=== PATIENT | female | born 1975 | race Caucasian/White ===

== ENCOUNTER 2017-02-14 15:08 | Inpatient (IN) ==
[2017-02-14] MEDS ORDERED: DEMEROL INJ PRN (20:56)
[2017-02-14] MEDS ORDERED: STADOL IV PRN ×2 (20:56)
[2017-02-14] MEDS ORDERED: AMBIEN PO PRN (20:56)
[2017-02-14] MEDS ORDERED: ZOFRAN IV PRN (20:56)
[2017-02-14] MEDS ORDERED: SODIUM CHLORIDE 0.9% INJ PRN (20:56)
[2017-02-14] MEDS ORDERED: BRETHINE SUBQ PRN (20:56)
[2017-02-14] MEDS ORDERED: PHENERGAN INJ PRN (20:56)
[2017-02-14] MEDS: LR 1,000 ML IV SCH (21:47)
[2017-02-14 22:08] LABS: URINE SOURCE VOIDED
[2017-02-14 22:15] LABS: UR AMPHETAMINES QUAL NONE DETECTED (NONE DETECT); UR BARBITUATES QUAL NONE DETECTED (NONE DETECT); UR BENZODIAZEPIN QUAL NONE DETECTED (NONE DETECT); UR CANNABINOIDS QUAL NONE DETECTED (NONE DETECT); UR COCAINE QUAL NONE DETECTED (NONE DETECT); UR MDMA QUAL NONE DETECTED (NONE DETECT); UR METHADONE QUAL NONE DETECTED (NONE DETECT); UR METHAMPHETAMINE QUAL NONE DETECTED (NONE DETECT); UR OPIATES QUAL NONE DETECTED (NONE DETECT); UR OXYCODONE QUAL NONE DETECTED (NONE DETECT); UR PCP QUAL NONE DETECTED (NONE DETECT); UR TCA QUAL NONE DETECTED (NONE DETECT)
[2017-02-14 22:23] LABS: BILIRUBIN URINE NEGATIVE (NEGATIVE); BLOOD URINE NEGATIVE (NEGATIVE); CLARITY CLEAR (CLEAR); COLOR YELLOW; GLUCOSE URINE NEGATIVE (NEGATIVE); LEUKOCYTES URINE NEGATIVE (NEGATIVE); NITRITE URINE NEGATIVE (NEGATIVE); PROTEIN URINE NEGATIVE (NEGATIVE); UROBILINOGEN URINE NORMAL
[2017-02-14] MEDS ORDERED: CERVIDIL VAGINAL VAG ONE (23:00)
[2017-02-15] MEDS ORDERED: PITOCIN 30 UNITS/LR 30 UNITS/500 ML IV.SOLN IV SCH (06:41)
[2017-02-15] MEDS ORDERED: FENTANYL-BUPIV-NS 2 MCG-0.1% 200 ML EPIDURAL PRN (07:19)
[2017-02-15] MEDS: LR 1,000 ML IV SCH (07:45)
[2017-02-15 08:35] LABS: MANUAL DIFF NEEDED? NO
[2017-02-15 08:36] LABS: BASO% 0.1 % (0.0-0.8); EOS# 0.18 X1000 (0.0-0.7); EOS% 2.4 % (0.0-10.0); HEMATOCRIT 34.3 % (37.0-47.0); HEMOGLOBIN 11.1 g/dL (12.0-16.0); IMM GRAN# 0.03 X1000 (0.0-0.04); IMM GRAN% 0.4 % (0.0-0.5); LYMPH# 1.77 X1000 (1.2-3.4); LYMPH% 23.3 % (20.5-51.1); MCH 29.5 PG (27-31); MCHC 32.4 g/dL (33-37); MCV 91.2 FL (81-99); MONO# 0.59 X1000 (0.11-0.59); MONO% 7.8 % (1.7-9.3); PLT 231 X1000 (130-400); RBC 3.76 XMIL (4.2-5.4)
[2017-02-15] MEDS ORDERED: BOOSTRIX VACCINE IM ONE (14:06)
[2017-02-15] MEDS ORDERED: XYLOCAINE-MPF 1% INJ PRN (14:06)
[2017-02-15] MEDS ORDERED: HYDROXYZINE IM PRN (14:06)
[2017-02-15] MEDS ORDERED: NORCO-5 PO PRN (14:06)
[2017-02-15] MEDS ORDERED: CYTOTEC PO PRN (14:06)
[2017-02-15] MEDS ORDERED: PITOCIN 30 UNITS/LR 30 UNITS/500 ML IV.SOLN IV ONE (14:06)
[2017-02-15] MEDS ORDERED: AMBIEN PO PRN (14:06)
[2017-02-15] MEDS ORDERED: MINERAL OIL PO PRN (14:06)
[2017-02-15] MEDS ORDERED: HYDROXYZINE PO PRN (14:06)
[2017-02-15] MEDS ORDERED: M-M-R II VACCINE SUBQ ONE (14:06)
[2017-02-15] MEDS ORDERED: PITOCIN IM PRN (14:06)
[2017-02-15] MEDS ORDERED: BENADRYL IV PRN (14:06)
[2017-02-15] MEDS ORDERED: BENADRYL PO PRN (14:06)
[2017-02-15] MEDS ORDERED: PITOCIN 20 UNITS/LR 20 UNITS/1,000 ML IV.SOLN IV SCH (14:15)
[2017-02-15] MEDS: MOTRIN PO PRN (17:24)
[2017-02-15] MEDS: PERI MEDS (DERMOPLAST/NUPERCAINAL/TUCKS) MISC PRN (17:24)
[2017-02-15] MEDS: NORCO-10 PO PRN ×2 (17:24→23:58)
[2017-02-15] MEDS: PERICOLACE PO SCH (20:05)
[2017-02-16] MEDS: MOTRIN PO PRN ×2 (04:41→16:15)
[2017-02-16 06:40] LABS: HEMATOCRIT 27.9 % (37.0-47.0); HEMOGLOBIN 8.9 g/dL (12.0-16.0); MCH 28.9 PG (27-31); MCHC 31.9 g/dL (33-37); MCV 90.6 FL (81-99); MPV 10.5 FL (7.4-10.4); RBC 3.08 XMIL (4.2-5.4)
[2017-02-16] MEDS: NORCO-10 PO PRN ×2 (08:40→16:16)
[2017-02-16] MEDS: PERICOLACE PO SCH (20:28)
[2017-02-17] MEDS: MOTRIN PO PRN (04:18)
[2017-02-17] MEDS: NORCO-10 PO PRN ×2 (04:18→09:32)
[2017-02-17 08:20] VITALS: BP 128/68
[2017-02-17] MEDS: PERI MEDS (DERMOPLAST/NUPERCAINAL/TUCKS) MISC PRN (08:47)
== END 2017-02-17 10:45 | disposition home or self-care (01) ==
LOC: P.LD 20:54 → P.WC 02-15 16:40
PROVIDERS: ADMIT Obstetrics & Gynecology; ATTEND Obstetrics & Gynecology